=== PATIENT | female | born 1995 | race Caucasian/White ===

== ENCOUNTER → 2024-10-21 10:15 | Outpatient (REF) | payer BC, SELFPAY | LOC: PNTC 10:15 | PROVIDERS: ATTENDING PHYSICIAN Student in an Organized Health Care Education/Training Program | DX: Z36.0 Encounter for antenatal screening for chromosomal anomalies (principal); Z36.82 Encounter for antenatal screening for nuchal translucency | CPT/HCPCS: 76801; 76813 ==

== ENCOUNTER → 2024-12-15 15:07 | Outpatient (REF) | payer BC, SELFPAY | LOC: PNTC 15:07 | PROVIDERS: ATTENDING PHYSICIAN Student in an Organized Health Care Education/Training Program | DX: O99.210 Obesity complicating pregnancy, unspecified trimester (principal) | CPT/HCPCS: 76811; 76817 ==

== ENCOUNTER → 2025-01-27 07:03 | Outpatient (REF) | payer BC, SELFPAY | LOC: PNTC 07:03 | PROVIDERS: ATTENDING PHYSICIAN Obstetrics & Gynecology | DX: Z36.4 Encounter for antenatal screening for fetal growth retardation (principal) | CPT/HCPCS: 76816 ==

== ENCOUNTER → 2025-02-09 13:47 | Outpatient (REF) | payer BC, SELFPAY | LOC: PNTC 13:47 | PROVIDERS: ATTENDING PHYSICIAN Obstetrics & Gynecology | DX: Z34.03 Encounter for supervision of normal first pregnancy, third trimester (principal) | CPT/HCPCS: 36415; 59025; 86850; 86900; 86901; 96372; J2790 ==

== ENCOUNTER → 2025-03-12 15:53 | Outpatient (REF) | payer BC, SELFPAY | LOC: PNTC 15:53 | PROVIDERS: ATTENDING PHYSICIAN Obstetrics & Gynecology | DX: Z34.80 Encounter for supervision of other normal pregnancy, unspecified trimester (principal) | CPT/HCPCS: 76816 ==

== ENCOUNTER 2025-04-24 07:19 | Observation (INO) | payer BC, SELFPAY ==
[2025-04-24 07:31] VITALS: BP 114/65; BMI 34.0
== END 2025-04-24 13:54 | disposition home or self-care (01) ==
LOC: LDRP 07:19
PROVIDERS: ADMITTING PHYSICIAN Obstetrics & Gynecology
DX: O47.1 False labor at or after 37 completed weeks of gestation (principal); Z3A.39 39 weeks gestation of pregnancy
CPT/HCPCS: 36415; 86850; 86900; 86901; G0378

== ENCOUNTER 2025-04-24 19:00 | Inpatient (IN) | payer BC, SELFPAY ==
[2025-04-24 19:05] VITALS: BMI 34.0
[2025-04-24 19:19] VITALS: BP 116/70
[2025-04-24] MEDS: LR 1000 IV ×2 (19:55→22:54)
[2025-04-24 20:17] LABS: % Basophils 0.2 % (0-2); % Eosinophils 0.3 % (0-6); % Lymphocytes 14.7 % (20.5-51.1); % Monocytes 6.4 % (1.7-9.3); % Neutrophils 77.4 % (42.2-75.2); Absolute Eosinophils 0.1 10^3/uL (0-0.7); Absolute Immature Granulocytes 0.2 10^3/uL (0-0.05); Absolute Lymphocytes 2.5 10^3/uL (1.2-3.4); Absolute Monocytes 1.1 10^3/uL (0.1-0.6); Absolute Neutrophils 13.1 10^3/uL (1.4-6.5); Hematocrit 37.9 % (37.0-47.0); Hemoglobin 13.5 g/dL (12.0-16.0); Mean Corp Hgb Conc. 35.6 g/dL (33.0-37.0); Mean Corpuscular Hgb 28.4 pg (27.0-31.0); Mean Corpuscular Volume 79.8 fL (81.0-99.0); Mean Platelet Volume 12.3 fL (7.4-10.4); Nucleated Red Blood Cells % 0 %; Platelet Count 214 10^3/uL (130-400); Red Blood Cell Count 4.75 10^6/uL (4.20-5.40); Red Cell Dist. Width 13.2 % (11.5-14.5); White Blood Cell Count 16.9 10^3/uL (4.8-10.8)
[2025-04-24] MEDS: STADOL 1 MG IV ×2 (20:17→22:19)
[2025-04-24] MEDS: SUBLIMAZE 100 MCG EPIDURAL (22:42)
[2025-04-24] MEDS: FENTANYL/BUPIVACAINE 100 EPIDURAL (22:42)
[2025-04-25] MEDS: FENTANYL/BUPIVACAINE 100 EPIDURAL (06:23)
[2025-04-25] MEDS: PITOCIN 30 UNITS/NSS 500 ML IV (10:45)
[2025-04-25] MEDS: XYLOCAINE-MPF 1% VIAL 30 ML INFIL (10:55)
[2025-04-25] MEDS: MOTRIN 600 MG PO (19:49)
[2025-04-26 05:39] LABS: Hematocrit 29.4 % (37.0-47.0); Hemoglobin 10.1 g/dL (12.0-16.0)
[2025-04-26] MEDS: PRENATAL PLUS 1 TABLET PO (10:00)
[2025-04-26] MEDS: SENOKOT-S 1 TABLET PO (10:00)
[2025-04-26] MEDS: MOTRIN 600 MG PO (10:00)
[2025-04-26] MEDS: RHOGAM 300 MCG IM (14:49)
[2025-04-27] MEDS: MOTRIN 600 MG PO (04:51)
[2025-04-27] MEDS: FEOSOL 325 MG PO (08:49)
[2025-04-27] MEDS: PRENATAL PLUS 1 TABLET PO (08:49)
[2025-04-28 14:06] LABS: Syphilis/T. pallidum Ab Reflex Negative (Negative)
== END 2025-04-27 11:56 | disposition home or self-care (01) | DRG 807 ==
LOC: LDRP 19:00
PROVIDERS: Obstetrics & Gynecology; ADMITTING PHYSICIAN Student in an Organized Health Care Education/Training Program
PROC: 0KQM0ZZ Repair Perineum Muscle, Open Approach (ICD-10-PCS; 2025-04-25)
PROC: 6A550ZT Pheresis of Cord Blood Stem Cells, Single (ICD-10-PCS; 2025-04-25)
PROC: 10E0XZZ Delivery of Products of Conception, External Approach (ICD-10-PCS; 2025-04-25)
PROC: 3E0234Z Introduction of Serum, Toxoid and Vaccine into Muscle, Percutaneous Approach (ICD-10-PCS; 2025-04-25)
PROC: 10907ZC Drainage of Amniotic Fluid, Therapeutic from Products of Conception, Via Natural or Artificial Opening (ICD-10-PCS; 2025-04-25)
DX: O32.2XX0 Maternal care for transverse and oblique lie, not applicable or unspecified (principal); Z37.0 Single live birth; Z3A.39 39 weeks gestation of pregnancy; O70.1 Second degree perineal laceration during delivery; O99.344 Other mental disorders complicating childbirth; F32.A Depression, unspecified; G43.909 Migraine, unspecified, not intractable, without status migrainosus; J45.990 Exercise induced bronchospasm; O99.52 Diseases of the respiratory system complicating childbirth; O99.214 Obesity complicating childbirth; Z23 Encounter for immunization; Z88.8 Allergy status to other drugs, medicaments and biological substances; Z85.820 Personal history of malignant melanoma of skin; Z28.310 Unvaccinated for COVID-19
CPT/HCPCS: 85014; 85018; 85025; 85461; 86780; 86850; 86900; 86901; 88307; J2790